=== PATIENT | male | born 1960 | race Caucasian/White ===

== ENCOUNTER 2024-12-20 15:54 | Inpatient (IN) | payer OTHER ==
[~2024-12-20] VITALS: Ht 182.9 cm; Wt 95.3 kg
[~2024-12-20 15:54] MED LIST: PIPERACILLIN /TAZOBACTAM 3.375 G in IV D5W 50 ML IV SCH
[2024-12-20] MEDS: PIPERACILLIN /TAZOBACTAM 3.375 G in IV D5W 50 ML IV ONE (16:41)
[2024-12-20 17:01] LABS: BASOPHILS % (AUTO) 0.4 % (0.0-2.0); EOSINOPHILS # (AUTO) 0.3 K/uL (0.0-0.7); EOSINOPHILS % (AUTO) 3.3 % (0.0-6.0); HEMATOCRIT 44 % (39-51); HEMOGLOBIN 14.8 g/dL (13.5-17.5); LYMPHOCYTES # (AUTO) 1.8 K/uL (0.8-4.8); LYMPHOCYTES % (AUTO) 24.1 % (20.0-44.0); MEAN CORPUSCULAR HEMOGLOBIN 29 PG (26.0-33.0); MEAN CORPUSCULAR HGB CONC 34 g/dl (31.0-36.0); MEAN CORPUSCULAR VOLUME 87 fL (80-96); MONOCYTES # (AUTO) 0.4 K/uL (0.1-1.30); MONOCYTES % (AUTO) 5.6 % (2.0-12.0); NEUTROPHILS % (AUTO) 66.6 % (43.0-81.0); PLATELET COUNT (AUTO) 338 K/uL (150-450); RED BLOOD CELL COUNT(AUTO) 5.09 MIL/uL (4.5-6.0); RED CELL DISTRIBUTION WIDTH 14.9 % (11.5-15.0); WHITE BLOOD COUNT (AUTO) 7.5 K/uL (4.3-11.0)
[2024-12-20 17:06] LABS: CREATININE 1.5 mg/dL (0.6-1.3); POTASSIUM 4.2 mmol/L (3.5-5.1)
[2024-12-20 17:13] LABS: LACTIC ACID 1.5 mmol/L (0.4-2.0)
[2024-12-20 17:14] LABS: INR 1.07 (0.91-1.10); PARTIAL THROMBOPLASTIN TIME 28.5 SEC (24.3-34.3); PROTHROMBIN TIME 11.3 SECS (9.2-11.1)
[2024-12-20 17:15] LABS: ALBUMIN 3.3 g/dL (3.4-5.0); BILIRUBIN,DIRECT 0.1 mg/dL (0.0-0.2); BILIRUBIN,TOTAL 0.5 mg/dL (0.2-1.0); TOTAL PROTEIN, SERUM 7.9 g/dL (6.4-8.2)
[2024-12-20] MEDS: VANCOMYCIN 1 GM in IV D5W 250 ML IV ONE ×2 (17:21→22:18)
[2024-12-20] MEDS ORDERED: METO75TA PO (17:39)
[2024-12-20] MEDS ORDERED: SPIR25TA6 PO (17:39)
[2024-12-20] MEDS ORDERED: ATOR80TA PO (17:39)
[2024-12-20] MEDS ORDERED: BUME2TAB7 PO (17:39)
[2024-12-20] MEDS ORDERED: EMPA25TA PO (17:39)
[2024-12-20] MEDS ORDERED: GABA300C PO (17:39)
[2024-12-20] MEDS ORDERED: ASPI-1169 PO (17:39)
[2024-12-20 18:11] LABS: APPEARANCE,URINE CLEAR (CLEAR); BILIRUBIN,URINE NEGATIVE (NEGATIVE); BLOOD, URINE NEGATIVE Ery/uL (NEGATIVE); COLOR,URINE YELLOW (YELLOW); KETONES,URINE NEGATIVE (NEGATIVE); LEUKOCYTE ESTERASE ,URINE NEGATIVE (NEGATIVE); NITRITE, URINE NEGATIVE (NEGATIVE); PROTEIN,URINE NEGATIVE (NEGATIVE); UGLUCOSE 3+ mg/dL (NEGATIVE)
[2024-12-20] MEDS ORDERED: oxyCODONE/APAP (5/325 MG) 1 UDTAB TABLET ONE (19:14)
[2024-12-20] MEDS: oxyCODONE/APAP (5/325 MG) 1 UDTAB TABLET PO ONE (19:16)
[2024-12-20 19:45] LABS: ADD URINE CULTURE NO; BACTERIA,URINE None seen /HPF (None Seen); RBC,URINE 0-2 /HPF (0-2); WBC,URINE 0-2 /HPF (0-3)
[2024-12-20] MEDS ORDERED: MAG HYDROX/AL HYDROX/SIMETH 30 ML UDC PO PRN (21:00)
[2024-12-20] MEDS ORDERED: MAGNESIUM HYDROXIDE 30 ML UDC PO PRN (21:00)
[2024-12-20] MEDS ORDERED: HYDROCODONE/APAP 5/325MG TABLET PO PRN (21:00)
[2024-12-20] MEDS ORDERED: Z GUARD REMEDY 4 OZ OINT TP PRN (21:00)
[2024-12-20] MEDS ORDERED: ONDANSETRON HCL/PF 4 MG/2 ML VIAL IVP PRN (21:00)
[2024-12-20] MEDS ORDERED: GABAPENTIN 300 MG CAPSULE ONE (23:27)
[2024-12-20] MEDS: GABAPENTIN 300 MG CAPSULE PO SCH (23:30)
[2024-12-20] MEDS: ZOLPIDEM TARTRATE 5 MG TABLET PO PRN (23:48)
[2024-12-20] MEDS: ZOLPIDEM TARTRATE 5 MG TABLET ONE (23:48)
[2024-12-21] MEDS ORDERED: PIPERACILLIN /TAZOBACTAM 3.375 G in IV D5W 50 ML IV SCH ×2 (00:30→05:00)
[2024-12-21 05:48] LABS: BASOPHILS # (AUTO) 0.1 K/uL (0.0-0.2); BASOPHILS % (AUTO) 0.8 % (0.0-2.0); EOSINOPHILS # (AUTO) 0.3 K/uL (0.0-0.7); EOSINOPHILS % (AUTO) 3.5 % (0.0-6.0); HEMATOCRIT 44 % (39-51); HEMOGLOBIN 14.4 g/dL (13.5-17.5); LYMPHOCYTES # (AUTO) 1.8 K/uL (0.8-4.8); MEAN CORPUSCULAR HEMOGLOBIN 28 PG (26.0-33.0); MEAN CORPUSCULAR HGB CONC 33 g/dl (31.0-36.0); MEAN CORPUSCULAR VOLUME 87 fL (80-96); MONOCYTES # (AUTO) 0.5 K/uL (0.1-1.30); NEUTROPHILS # (AUTO) 5.2 K/uL (1.8-8.9); NEUTROPHILS % (AUTO) 66.7 % (43.0-81.0); PLATELET COUNT (AUTO) 305 K/uL (150-450); RED CELL DISTRIBUTION WIDTH 15.2 % (11.5-15.0); WHITE BLOOD COUNT (AUTO) 7.8 K/uL (4.3-11.0)
[2024-12-21 06:11] LABS: CALCIUM, SERUM 8.7 mg/dL (8.5-10.1); CREATININE 1.5 mg/dL (0.6-1.3); MAGNESIUM 2.3 mg/dL (1.8-2.4); PHOSPHORUS 3.5 mg/dL (2.5-4.9); POTASSIUM 4.4 mmol/L (3.5-5.1)
[2024-12-21] MEDS: ZOSYN IVPB 3.375 G in IV D5W 50ml IV SCH (07:00)
[2024-12-21] MEDS: VANCOMYCIN 1 GM in IV D5W 250ml IV ONE (07:45)
[2024-12-21 09:00] VITALS: BP 103/78; TEMP 98.1; O2SAT 97
[2024-12-21] MEDS: BUMETANIDE (1 MG) 1 MG TABLET PO SCH (09:51)
[2024-12-21] MEDS: ATORVASTATIN 40 MG TABLET PO SCH (09:51)
[2024-12-21] MEDS: PANTOPRAZOLE 40 MG VIAL IV SCH (09:52)
[2024-12-21] MEDS: ASPIRIN 81 MG TAB.CHEW PO SCH (09:52)
[2024-12-21] MEDS: SPIRONOLACTONE 25 MG TABLET PO SCH (09:52)
[2024-12-21] MEDS: EMPAGLIFLOZIN 25 MG TABLET PO SCH (12:00)
[2024-12-21] MEDS: METOPROLOL TARTRATE 25 MG TABLET PO SCH (12:00)
[2024-12-21] MEDS ORDERED: DEXTROSE 50%-WATER 50 ML DISP.SYRIN IV PRN (12:00)
[2024-12-21] MEDS: BLOOD SUGAR DIAGNOSTIC 1 EACH STRIP IN SCH (12:08)
[2024-12-21] MEDS: INSULIN REGULAR, HUMAN 100 UNIT/ML 3 ML VIAL SQ PRN (13:58)
[2024-12-21 14:13] VITALS: BP 103/78; TEMP 98.1; O2SAT 99
[2024-12-21 20:00] VITALS: BP 95/63; TEMP 98.4; O2SAT 97
[2024-12-21] MEDS: VANCOMYCIN 750 MG in IV D5W 250 ML IV SCH (20:36)
[2024-12-21 22:00] VITALS: BP 111/62; O2SAT 98
[2024-12-22 07:30] VITALS: BP 112/62; TEMP 98.1; O2SAT 97
[2024-12-22 07:34] LABS: CALCIUM, SERUM 8.8 mg/dL (8.5-10.1); CREATININE 1.6 mg/dL (0.6-1.3); POTASSIUM 3.8 mmol/L (3.5-5.1)
[2024-12-22] MEDS: PANTOPRAZOLE 40 MG TABLET.DR PO SCH (09:04)
[2024-12-22] MEDS: ACETAMINOPHEN 325 MG TABLET PO PRN (14:35)
[2024-12-22 20:00] VITALS: BP 95/71; TEMP 97.9; O2SAT 98
[2024-12-22 21:00] VITALS: BP 94/71; TEMP 97.9; O2SAT 98
[2024-12-22] MEDS: VANCOMYCIN HCL 1.25 GM in IV D5W 250 ML IV SCH (21:03)
[2024-12-23 05:29] VITALS: BP 105/70; TEMP 97.8; O2SAT 96
[2024-12-23 07:18] LABS: BASOPHILS % (AUTO) 0.4 % (0.0-2.0); EOSINOPHILS # (AUTO) 0.4 K/uL (0.0-0.7); HEMATOCRIT 45 % (39-51); HEMOGLOBIN 15.1 g/dL (13.5-17.5); LYMPHOCYTES % (AUTO) 22.1 % (20.0-44.0); MEAN CORPUSCULAR HEMOGLOBIN 29 PG (26.0-33.0); MEAN CORPUSCULAR HGB CONC 33 g/dl (31.0-36.0); MEAN CORPUSCULAR VOLUME 86 fL (80-96); MONOCYTES # (AUTO) 0.6 K/uL (0.1-1.30); MONOCYTES % (AUTO) 6.7 % (2.0-12.0); NEUTROPHILS # (AUTO) 5.9 K/uL (1.8-8.9); NEUTROPHILS % (AUTO) 66.8 % (43.0-81.0); PLATELET COUNT (AUTO) 324 K/uL (150-450); RED BLOOD CELL COUNT(AUTO) 5.26 MIL/uL (4.5-6.0); RED CELL DISTRIBUTION WIDTH 15.1 % (11.5-15.0); WHITE BLOOD COUNT (AUTO) 8.9 K/uL (4.3-11.0)
[2024-12-23 07:30] VITALS: BP 111/74; TEMP 97.9; O2SAT 97
[2024-12-23 07:51] LABS: ALBUMIN 3.5 g/dL (3.4-5.0); CALCIUM, SERUM 8.7 mg/dL (8.5-10.1); CREATININE 1.9 mg/dL (0.6-1.3); MAGNESIUM 2.2 mg/dL (1.8-2.4); PHOSPHORUS 5.2 mg/dL (2.5-4.9); POTASSIUM 3.4 mmol/L (3.5-5.1); TOTAL PROTEIN, SERUM 8.3 g/dL (6.4-8.2)
[2024-12-23] MEDS: POTASSIUM CHLORIDE 10 MEQ TABLET.SA PO ONE (09:34)
[2024-12-23 16:00] VITALS: BP 100/76; TEMP 97.9; O2SAT 99
[2024-12-23 20:00] VITALS: BP 98/78; TEMP 97.3; O2SAT 96
[2024-12-23] MEDS: VANCOMYCIN 1 GM in IV D5W 250 ML IV SCH (21:14)
[2024-12-23] MEDS: HYDROCODONE/APAP 10/325MG TABLET PO PRN (21:26)
[2024-12-24] MEDS: LEVOFLOXACIN (250MG) 250 MG TABLET PO ONE (00:07)
[2024-12-24 07:11] LABS: PTH, INTACT 62 pg/mL (15-65)
[2024-12-24 07:30] VITALS: BP 101/69; TEMP 98.1; O2SAT 95
[2024-12-24 08:30] LABS: CALCIUM, SERUM 8.5 mg/dL (8.5-10.1); POTASSIUM 3.9 mmol/L (3.5-5.1)
[2024-12-24] MEDS: DOXYCYCLINE HYCLATE (100 MG) 100 MG TABLET PO SCH (09:02)
[2024-12-24 09:04] VITALS: BP 101/69
[2024-12-24] MEDS ORDERED: DOXY100T2 PO (11:13)
[2024-12-24] MEDS ORDERED: LEVO250T59 PO (11:13)
[2024-12-24] MEDS ORDERED: LEVOFLOXACIN (250MG) 250 MG TABLET PO SCH (21:00)
== END 2024-12-24 15:24 | disposition home health service (06) | DRG 364 ==
LOC: ER 15:54 → MS IN 23:10 → MED 12-21 08:49
PROVIDERS: ATTEND Internal Medicine
PROC: 0KBV0ZZ Excision of Right Foot Muscle, Open Approach (ICD-10-PCS; principal; 2024-12-22)
DX: E11.621 Type 2 diabetes mellitus with foot ulcer (principal); L97.515 Non-pressure chronic ulcer of other part of right foot with muscle involvement without evidence of necrosis; N17.0 Acute kidney failure with tubular necrosis; I42.9 Cardiomyopathy, unspecified; E44.1 Mild protein-calorie malnutrition; I50.22 Chronic systolic (congestive) heart failure; I13.0 Hypertensive heart and chronic kidney disease with heart failure and stage 1 through stage 4 chronic kidney disease, or unspecified chronic kidney disease; E88.09 Other disorders of plasma-protein metabolism, not elsewhere classified; E87.1 Hypo-osmolality and hyponatremia; E11.22 Type 2 diabetes mellitus with diabetic chronic kidney disease; E11.42 Type 2 diabetes mellitus with diabetic polyneuropathy; N18.9 Chronic kidney disease, unspecified; E78.5 Hyperlipidemia, unspecified; M89.8X9 Other specified disorders of bone, unspecified site; E66.9 Obesity, unspecified; Z68.28 Body mass index [BMI] 28.0-28.9, adult
CPT/HCPCS: 36415; 71045-TC; 73630-TC; 76770-TC; 80048-TC; 80053-TC; 80076-TC; 80202-TC; 81001; 82550-TC; 82962-TC; 83605-TC; 83735-TC; 83970; 84100-TC; 84155; 84165; 85025-TC; 85027-TC; 85652-TC; 85730-TC; 86140-TC; 87040-TC; 87086-TC; A4223; A6403; G0378; J1815; J2470; J2543; J3370; J3371; J7040; J7060

== ENCOUNTER 2025-08-29 11:32 | Emergency (ER) | payer OTHER ==
[~2025-08-29] VITALS: Ht 182.9 cm; Wt 86.2 kg
[~2025-08-29 11:32] MED LIST changes: +ASPI-1169 PO; +ATOR80TA PO; +BUME2TAB7 PO; +DOXY100T2 PO; +EMPA25TA PO; +GABA300C PO; +LEVO250T59 PO; +METO75TA PO; -PIPERACILLIN /TAZOBACTAM 3.375 G in IV D5W 50 ML IV SCH; +SPIR25TA6 PO
[2025-08-29] MEDS: IV NS 0.9% 1,000 ML BAG IV ONE (11:59)
[2025-08-29 12:03] LABS: PLATELET COUNT (AUTO) 395 K/uL (150-450); RED BLOOD CELL COUNT(AUTO) 4.39 MIL/uL (4.5-6.0); RED CELL DISTRIBUTION WIDTH 15.7 % (11.5-15.0); WHITE BLOOD COUNT (AUTO) 10.2 K/uL (4.3-11.0)
[2025-08-29] MEDS ORDERED: ACETAMINOPHEN ES 500 MG TABLET ONE (12:19)
[2025-08-29] MEDS: ACETAMINOPHEN ES 500 MG TABLET PO ONE (12:20)
[2025-08-29 12:21] LABS: ASPARTATE AMINOTRANSFERASE 48.0 U/L (15-37); CALCIUM, SERUM 8.3 mg/dL (8.5-10.1); CREATININE 1.9 mg/dL (0.6-1.3); SODIUM SERUM 133.0 mmol/L (136-145); TOTAL PROTEIN, SERUM 7.9 g/dL (6.4-8.2); UREA NITROGEN, BLOOD 38.0 mg/dL (7-18)
[2025-08-29 12:38] VITALS: BP 119/68; TEMP 98.1; O2SAT 99
[2025-08-29 12:52] LABS: APPEARANCE,URINE CLEAR (CLEAR); BLOOD, URINE TRACE-INTA Ery/uL (NEGATIVE); LEUKOCYTE ESTERASE ,URINE NEGATIVE (NEGATIVE); NITRITE, URINE NEGATIVE (NEGATIVE); UGLUCOSE 3+ mg/dL (NEGATIVE)
[2025-08-29 12:53] LABS: ADD URINE CULTURE NO; SQUAMOUS EPITHELIAL CELL,UR Few /HPF (None Seen)
== END 2025-08-29 13:19 | disposition home or self-care (01) ==
LOC: ER 11:45
DX: R19.7 Diarrhea, unspecified (principal); E11.9 Type 2 diabetes mellitus without complications; Z95.5 Presence of coronary angioplasty implant and graft; Z79.899 Other long term (current) drug therapy; Z79.84 Long term (current) use of oral hypoglycemic drugs; Z79.82 Long term (current) use of aspirin
CPT/HCPCS: 99283; 96360; 85025; 80048; 87086; 83690; 80076; 81001; 36415; J7030